=== PATIENT | male | born 1985 | race Caucasian/White ===

== ENCOUNTER 2017-11-02 12:02 | Emergency (ER) | payer SELFPAY ==
[2017-11-02 13:01] VITALS: BP 141/74
[2017-11-02] MEDS ORDERED: Tetan/Diph/Pertus SYR(Tdap)* 0.5 ML SYR(BOOSTRIX) use SYR IM ONE (13:14)
--- NOTE | 2017-11-02 13:15 | UC ---
Laceration HPI - HPI Summary HPI Summary: Pt presents with laceration above right eye sustained last night when he slipped on the ice and hit his head. He tells me he was walking on an uneven sidewalk and hit a patch of ice. He fell and hit his head, but tells me he slid on the sidewalk for a few feet. It was bleeding a lot at the time, but he didn' t think much of it. Went home and saw it in the mirror and realized it was cut worse than he thought. He stopped the bleeding and went to bed. He denies dizziness, headache, vision changes, or weakness. Last tetanus was over 5 years ago. - History Of Current Complaint Chief Complaint: UCLaceration Stated Complaint: HEAD LAC Time Seen by Provider: 11/02/17 13:14 Hx Obtained From: Patient Laceration Location: Face Mechanism Of Injury: Blunt Trauma Onset/Duration: Sudden Onset Severity: Mild Pain Intensity: 3 Pain Scale Used: 0-10 Numeric - Allergies/Home Medications Allergies/Adverse Reactions: Allergies Allergy/AdvReac Type Severity Reaction Status Date / Time Amoxicillin Allergy Rash Verified 11/02/17 13:01 Penicillins [PCN] Allergy Rash Verified 11/02/17 13:01 cillans Allergy Rash Uncoded 11/02/17 13:01 PMH/Surg Hx/FS Hx/Imm Hx Previously Healthy: Yes - Surgical History Surgical History: Yes Surgery Procedure, Year, and Place: tubes to ears - Social History Occupation: Employed Full-time Lives: Alone Alcohol Use: Daily Substance Use Type: None Smoking Status (MU): Former Smoker Review of Systems Constitutional: Negative Skin: Other - Laceration above right eye Eyes: Negative Respiratory: Negative Cardiovascular: Negative Neurovascular: Negative Musculoskeletal: Negative Neurological: Negative All Other Systems Reviewed And Are Negative: Yes Physical Exam Triage Information Reviewed: Yes Appearance: Well-Appearing, No Pain Distress, Well-Nourished Vital Signs: Initial Vital Signs Temp 99.3 F 11/02/17 12:56 Pulse 85 11/02/17 12:56 Resp 18 11/02/17 12:56 BP 141/74 11/02/17 12:56 Pulse Ox 100 11/02/17 12:56 Vital Signs Reviewed: Yes Eyes: Positive: Conjunctiva Clear, Other: - EOMI. PERRLA.. Negative: Conjunctiva Inflamed, Discharge ENT: Positive: Hearing grossly normal, TMs normal. Negative: TM bulging, TM dull, TM red Neck: Positive: Supple, No Lymphadenopathy, Other: - NTTP. FROM. Respiratory: Positive: Chest non-tender, Lungs clear, Normal breath sounds Cardiovascular: Positive: RRR, No Murmur, Pulses Normal Musculoskeletal: Positive: Strength Intact - B/L UEs and LEs, ROM Intact - B/L UEs and LEs, No Edema Neurological: Positive: Alert, Other: - A&Ox3. 3 word recall, remote, recent memory, ability to follow 2-step directions, and attention intact. CN II XII grossly intact. Motor: good muscle tone, strength 5/5 throughout. Finger-to- nose are intact. Gait with normal base. Romberg: maintains balance, no pronator drift. Sensory: sharp and dull touch intact. Normal speech. No facial drooping. Psychological: Positive: Age Appropriate Behavior Skin: Positive: Other - 2cm linear laceration above right eye with surrounding edema and erythema. Not currently bleeding. No discharge or FBs appreciated. Laceration Repair - Laceration Repair 1 Description: Linear Laceration Size After Repair: Length (cm) - 2 Modified For Repair: No Type Injection: Local Anesthesia Used: 2.0% Lido Irrigation With Pressure Irrigation Device: Yes Closure Material: Sutures - five 5-0 Closure Method: Single Layer Suture Of: Skin Suture Type: Nylon Laceration Course/Dx - Course/Dx Course Of Treatment: A time out was performed, witnessed, and signed. The area was irrigated with 100mL sterile saline. 4mL of 2% lidocaine without epi was administered and good anesthetization was achieved. An Iodine swab was used to cleanse the area. In the usual sterile fashion, five 5-0 nylon sutures were placed. The wound was bandaged with telfa and bacitracin. Pt tolerated procedure well. Advised to return in 4-5 days for suture removal. Monitor for signs of infection and red flags after head trauma. - Differential Dx - Laceration/Wound Differental Diagnoses: Abrasion, Laceration Provider Diagnoses: 2.0cm laceration to right forehead. Head injury. Fall Discharge - Discharge Plan Condition: Stable Disposition: HOME Prescriptions: Sulfamethox/Trimethoprim DS* [Bactrim DS 800/160 TAB*] 1 tab PO BID #14 tab Patient Education Materials: Care For Your Stitches (ED) Referrals: No Primary Care Phys,NOPCP [Primary Care Provider] - Additional Instructions: If you develop a fever, SOB, chest pain, new or worsening symptoms - please call your PCP or go to the ED. Your blood pressure was high at todays visit. Please see your primary provider within 4 weeks for recheck and re-evaluation. 1) Please keep the bandage clean, dry, and intact for the next 24 hours. 2) Monitor for signs of infection such as increased pain/swelling, discolored or thick drainage, fever, or chills - if you develop any of these symptoms, please return to clinic or go to the ED 3) Please return to have your 5 sutures removed in 4-5 days.
[2017-11-02] MEDS ORDERED: Lidocaine 1% MPF* 2 ML VIAL INJ ONE (13:53)
[2017-11-02] MEDS ORDERED: Lidocaine 2% PF * 5 ML VIAL INJ ONE (14:06)
== END 2017-11-02 14:42 | disposition home or self-care (01) ==
LOC: UCEAST 12:02
DX: S01.81XA Laceration without foreign body of other part of head, initial encounter (principal); W00.0XXA Fall on same level due to ice and snow, initial encounter; Y93.01 Activity, walking, marching and hiking; Y92.480 Sidewalk as the place of occurrence of the external cause; Z88.0 Allergy status to penicillin; Z87.891 Personal history of nicotine dependence
CPT/HCPCS: 12011; 90471; 90715; 96372; 99212; G0463

== ENCOUNTER 2018-05-31 12:18 | Emergency (ER) | payer BC ==
[2018-05-31 12:36] VITALS: BP 127/81
[2018-05-31] MEDS ORDERED: NS 0.9% 1000 ML* 1,000 ML IV ONE (13:16)
[2018-05-31] MEDS ORDERED: Ketorolac INJ* 30 MG/ML 1 ML VIAL IV PUSH ONE (13:16)
--- NOTE | 2018-05-31 13:17 | UC ---
Throat Pain/Nasal Tj HPI - HPI Summary HPI Summary: fatigue, sore throat for 1 week--unsure abut fevers - History of Current Complaint Chief Complaint: UCGeneralIllness Stated Complaint: SORE THROAT Time Seen by Provider: 05/31/18 13:07 Hx Obtained From: Patient Onset/Duration: Sudden Onset, Lasting Weeks - 1 Pain Intensity: 8 Pain Scale Used: 0-10 Numeric Cough: None Associated Signs & Symptoms: Positive: Fever - Allergies/Home Medications Allergies/Adverse Reactions: Allergies Allergy/AdvReac Type Severity Reaction Status Date / Time amoxicillin Allergy Rash Verified 05/31/18 12:30 Penicillins Allergy Rash Verified 05/31/18 12:30 Home Medications: Home Medications Ibuprofen/Diphenhydramine HCl [Ibuprofen Pm 200-25 mg] 1 cap PO ONCE 05/31/18 [ History Confirmed 05/31/18] PMH/Surg Hx/FS Hx/Imm Hx Previously Healthy: Yes - Surgical History Surgical History: Yes Surgery Procedure, Year, and Place: eustachian tubes in ears as a child - Family History Known Family History: Positive: None - Social History Occupation: Employed Full-time Lives: With Family Alcohol Use: Occasionally Substance Use Type: None Smoking Status (MU): Former Smoker Review of Systems Constitutional: Fever, Fatigue Skin: Negative Eyes: Negative ENT: Sore Throat Respiratory: Negative Cardiovascular: Negative Gastrointestinal: Negative Genitourinary: Negative Motor: Negative Neurovascular: Negative Musculoskeletal: Negative Neurological: Negative Psychological: Negative Is Patient Immunocompromised?: No All Other Systems Reviewed And Are Negative: Yes Physical Exam Triage Information Reviewed: Yes Appearance: Well-Nourished, Ill-Appearing - mild, Pain Distress - mild Vital Signs: Initial Vital Signs Temp 98.1 F 05/31/18 12:32 Pulse 99 05/31/18 12:32 Resp 18 05/31/18 12:32 BP 127/81 05/31/18 12:32 Pulse Ox 97 05/31/18 12:32 Vital Signs Reviewed: Yes Eye Exam: Normal Eyes: Positive: Conjunctiva Clear ENT Exam: Normal ENT: Positive: Normal ENT inspection, Hearing grossly normal, Pharynx normal, Nasal congestion, TMs normal, Tonsillar swelling, Hoarse voice, Uvula midline Dental Exam: Normal Neck exam: Normal Neck: Positive: Supple, Tenderness @, Enlarged Nodes @ Respiratory Exam: Normal Respiratory: Positive: Chest non-tender, Lungs clear, Normal breath sounds, No respiratory distress, No accessory muscle use Cardiovascular Exam: Normal Cardiovascular: Positive: RRR, No Murmur, Pulses Normal, Brisk Capillary Refill Musculoskeletal Exam: Normal Musculoskeletal: Positive: Strength Intact, ROM Intact, No Edema Neurological Exam: Normal Neurological: Positive: Alert, Muscle Tone Normal Psychological Exam: Normal Skin Exam: Normal Diagnostics - Laboratory Diagnostic Studies Completed/Ordered: RST (-), mono, cbc, p33, IV fluids, toradol , prednisne rest follow with pcp prn Throat Pain/Nasal Course/Dx - Course Assessment/Plan: Lab studies, IVF, prednisone rest follow with pcp - Differential Dx/Diagnosis Provider Diagnoses: Viral pharyngitis, mono Discharge - Sign-Out/Discharge Documenting (check all that apply): Patient Departure - Discharge Plan Condition: Stable Disposition: HOME Prescriptions: Clindamycin Cap(NF) [Clindamycin Cap 300 mg Cap(NF)] 300 mg PO Q6H #38 cap predniSONE TAB* [Deltasone 20 MG TAB*] 20 mg PO DAILY #15 tab Patient Education Materials: Pharyngitis (ED), Mononucleosis (ED) Forms: *Work Release Referrals: No Primary Care Phys,NOPCP [Primary Care Provider] - [facility] [Outside] - 3 Days - Billing Disposition and Condition Condition: STABLE Disposition: Home
[2018-05-31] MEDS ORDERED: predniSONE TAB* 20 MG PO ONE (14:02)
[2018-05-31] MEDS ORDERED: Clindamycin CAP* 150 MG PO ONE ×2 (14:55)
[2018-05-31 18:15] LABS: Hematocrit 40 % (42-52); Hemoglobin 13.4 g/dl (14.0-18.0); Mean Corpuscular HGB Conc 34 g/dl (31-36); Mean Corpuscular Hemoglobin 32 pg (27-31); Mean Corpuscular Volume 95 fL (80-94); Mean Platelet Volume 9.4 um3 (7.4-10.4); Platelet Count 254 10^3/ul (150-450); Red Cell Distribution Width 13 % (10.5-15); White Blood Count 14.5 10^3/ul (3.5-10.8)
[2018-05-31 18:46] LABS: EGFR Non-African American 140.6 (>60)
[2018-05-31 19:58] LABS: ABS Basophils 0.1 10^3/ul (0-0.2); ABS Eosinophils 0 10^3/ul (0-0.6); ABS Lymphocytes 1.4 10^3/ul (1.0-4.8); ABS Monocytes 2.6 10^3/ul (0-0.8); ABS Neutrophils 10.8 10^3/ul (1.5-7.7); ABS Nucleated RBC 0 10^3/ul; Eosinophil % 0.1 % (0-6); Lymphocyte % 9.5 % (25-47); Nucleated Red Blood Cells % 0
== END 2018-05-31 15:17 | disposition home or self-care (01) ==
LOC: UCEAST 12:18
DX: B27.90 Infectious mononucleosis, unspecified without complication (principal); J02.9 Acute pharyngitis, unspecified
CPT/HCPCS: 36415; 80053; 85025; 86308; 87651; 99212; A9270-GY; G0463; J1885; J7512